=== PATIENT | male | born 1940 | race Caucasian/White ===

== ENCOUNTER 2018-05-24 15:41 | Inpatient (IN) | payer OTHER ==
[~2018-05-24] VITALS: Ht 177.8 cm; Wt 52.2 kg
[~2018-05-24 15:41] MED LIST: ACETAMINOPHEN325 M1 PO; ADVAIR 250-501 EACH IH; ATROVENT30 ML; AVELOX 400 MG400 MG PO; BENICAR40 MG PO; CHILDREN'S ASPI81 M1 PO; LO-DOSE ASPIRIN81 M1 PO; PREDNISONE 10 M10 M1 PO; XOPENEX0.63 MG/3 IH
[2018-05-24 15:44] VITALS: BP 132/101
[2018-05-24 16:33] LABS: HEMATOCRIT 43.1 % (42.0-52.0); HEMOGLOBIN 14.3 gm/dL (14.0-18.0); MCH 36.3 pg (26.0-34.0); MCHC 33.3 g/dL (28.0-37.0); MCV 109.1 fL (80.0-100.0); MPV 8.9 fl. (7.2-11.1); NUCLEATED RBCS 0 /100WBC; PLATELET COUNT* 186 thou/uL (150-400); RBC 3.95 mil/uL (4.50-6.00); RDW-CV 14.2 % (10.5-14.5); WBC 7.3 thou/uL (4.0-11.0)
[2018-05-24 16:40] LABS: CALCIUM 8.6 mg/dL (8.5-10.1); CREATININE 1.5 mg/dL (0.6-1.3); POTASSIUM 3.3 mmol/L (3.5-5.1)
[2018-05-24 16:44] LABS: ALBUMIN 2.6 g/dL (3.4-5.0); TOTAL BILIRUBIN 3.8 mg/dL (<0.1-1.0); TOTAL PROTEIN 7.4 g/dL (6.4-8.2)
[2018-05-24 17:02] LABS: ABSOLUTE LYMPHOCYTES 0.4 thou/uL (0.8-5.3); ABSOLUTE MONOCYTES 0.6 thou/uL (0.0-1.2); ABSOLUTE NEUTROPHILS 6.4 thou/uL (1.6-8.1); PLATELET ESTIMATE ADEQUATE
[2018-05-24 17:03] LABS: MACROCYTES 1+
[2018-05-24 19:29] LABS: MAGNESIUM 1.4 mg/dL (1.8-2.4); PHOSPHORUS* 3.5 mg/dL (2.5-4.9)
[2018-05-24 19:29] LABS: URINE BLOOD 3+ (Negative); URINE CLARITY SL CLOUDY; URINE COLOR DARK YELLOW; URINE GLUCOSE-RANDOM 1+ (Negative); URINE KETONES 1+ (Negative); URINE LEUKOCYTES-REFLEX 1+ (Negative); URINE PROTEIN 2+ (Negative); URINE SPECIFIC GRAVITY 1.025 (1.005-1.030); URINE UROBILINOGEN >= 8.0 E.U./dl (0.2-1.0)
[2018-05-24 19:30] LABS: ICTOTEST (BILI CONFIRMATORY) Positive (Negative); URINE BILIRUBIN 3+ (Negative); URINE NITRITE-REFLEX POSITIVE (Negative)
[2018-05-24 19:36] LABS: BACTERIA-REFLEX >30 Many /HPF (None Seen)
[2018-05-24 19:37] LABS: HYALINE CASTS 4-10 Moderate /LPF (None Seen)
[2018-05-24 19:39] LABS: CRYSTALS None Seen /LPF (None Seen); MUCUS None Seen strn/LPF (None Seen); SQUAMOUS NONE SEEN /LPF (0-3); URINE WBC-REFLEX >25 Many /HPF (0-5); WBC CLUMPS Few (None Seen)
[2018-05-24 19:48] LABS: AMP/METHAMP Negative (Negative); BARBITURATES Negative (Negative); BENZODIAZEPINES Negative (Negative); COCAINE Negative (Negative); METHADONE Negative (Negative); OPIATES Negative (Negative); PCP Negative (Negative); THC Negative (Negative)
[2018-05-24 20:55] VITALS: BP 108/54
[2018-05-24 23:24] LABS: INR 1.1; PROTIME 10.3 Seconds (9.20-11.50)
[2018-05-25] VITALS: BP 86/44
[2018-05-25 04:00] VITALS: BP 97/46
[2018-05-25 04:48] LABS: HEMATOCRIT 32.1 % (42.0-52.0); MCH 36.7 pg (26.0-34.0); MCHC 34.4 g/dL (28.0-37.0); MCV 106.6 fL (80.0-100.0); MPV 8.6 fl. (7.2-11.1); RBC 3.01 mil/uL (4.50-6.00); WBC 4.3 thou/uL (4.0-11.0)
[2018-05-25 04:59] LABS: ALBUMIN 1.8 g/dL (3.4-5.0); CALCIUM 7.3 mg/dL (8.5-10.1); CREATININE 0.9 mg/dL (0.6-1.3); HEMOGLOBIN 11.1 gm/dL (14.0-18.0); PHOSPHORUS* 1.1 mg/dL (2.5-4.9); TOTAL BILIRUBIN 2.9 mg/dL (<0.1-1.0); TOTAL PROTEIN 5.3 g/dL (6.4-8.2)
[2018-05-25 05:25] LABS: POTASSIUM 2.8 mmol/L (3.5-5.1)
[2018-05-25 09:39] VITALS: BP 87/52
[2018-05-25 11:00] VITALS: BP 102/59
--- NOTE | 2018-05-25 11:16 | EKG ---
[place] [address] ELECTROCARDIOGRAM REPORT Name: DINA TOMLINSON Room: [address] ADM IN M.R.#: [id number] Admission: 05/24/18 Attend Phys: Allyson Aquino MD Discharge: Date of : 40 Report #: [id number] THIS REPORT FOR: //name// [facility] Test Date: 2018-05-25 Test Time: 00:06:07 Pat Name: DINA TOMLINSON Department: Room: [address] Gender: M Ham Stringer: RYAN : 1940 Requested By: Della Martel Order Number: [id number] William MD: Benjie Villalta Measurements Intervals [place] Rate: 89 P: 77 [place]: 124 QRS: 43 QRSD: 119 T: 269 QT: 459 QTc: 559 Interpretive Statements Sinus arrhythmia Incomplete right bundle branch block Low voltage, extremity leads Compared to ECG 09/14/2011 10:38:26 Incomplete right bundle-branch block now present Low QRS voltage now present Sinus tachycardia no longer present Electronically Signed On 05-25-2018 11:16:37 CDT by Benjie Villalta [email or web address] <ELECTRONICALLY SIGNED> By: Benjie Villalta MD, [facility] 05/25/18 1116 Benjie Villalta MD, [facility] /EPI
[2018-05-25 16:00] VITALS: BP 104/60
[2018-05-25 19:15] VITALS: BP 120/74
[2018-05-26] VITALS (7 sets, daily range): BP systolic 94–129; BP diastolic 54–82
[2018-05-26 04:31] LABS: HEMOGLOBIN 11.1 gm/dL (14.0-18.0); MCH 36.4 pg (26.0-34.0); MCHC 33.7 g/dL (28.0-37.0); MCV 107.9 fL (80.0-100.0); MPV 8.7 fl. (7.2-11.1); RBC 3.05 mil/uL (4.50-6.00); RDW-CV 14.3 % (10.5-14.5); WBC 5.6 thou/uL (4.0-11.0)
[2018-05-26 04:44] LABS: ALBUMIN 1.7 g/dL (3.4-5.0); CALCIUM 7.3 mg/dL (8.5-10.1); CREATININE 0.8 mg/dL (0.6-1.3); MAGNESIUM 1.9 mg/dL (1.8-2.4); PHOSPHORUS* 0.9 mg/dL (2.5-4.9); POTASSIUM 3.7 mmol/L (3.5-5.1); TOTAL BILIRUBIN 1.2 mg/dL (<0.1-1.0); TOTAL PROTEIN 5.5 g/dL (6.4-8.2)
[2018-05-26 21:19] LABS: BE 0.6 mmol/L (-2 to +3); HCO3 24.1 mmol/L (22.0-26.0); PCO2 35.3 mmHg (35.0-45.0); PO2 88.7 mmHg (75.0-100.0); pH 7.453 (7.340-7.450)
[2018-05-27 04:00] VITALS: BP 110/73
[2018-05-27 05:11] LABS: HEMOGLOBIN 10.5 gm/dL (14.0-18.0); MCH 36.7 pg (26.0-34.0); MCHC 33.9 g/dL (28.0-37.0); MCV 108.2 fL (80.0-100.0); RBC 2.86 mil/uL (4.50-6.00); RDW-CV 14.4 % (10.5-14.5); WBC 4.1 thou/uL (4.0-11.0)
[2018-05-27 05:36] LABS: ALBUMIN 1.6 g/dL (3.4-5.0); CALCIUM 7.5 mg/dL (8.5-10.1); CREATININE 0.7 mg/dL (0.6-1.3); MAGNESIUM 1.6 mg/dL (1.8-2.4); POTASSIUM 3.8 mmol/L (3.5-5.1); TOTAL BILIRUBIN 1.1 mg/dL (<0.1-1.0)
[2018-05-27 08:00] VITALS: BP 104/66
[2018-05-27 11:45] VITALS: BP 112/81
[2018-05-27 15:52] VITALS: BP 113/68
[2018-05-27 20:00] VITALS: BP 113/63
[2018-05-28] VITALS: BP 91/56
[2018-05-28 04:00] VITALS: BP 128/79
[2018-05-28 04:46] LABS: HEMATOCRIT 34.2 % (42.0-52.0); HEMOGLOBIN 11.4 gm/dL (14.0-18.0); MCHC 33.3 g/dL (28.0-37.0); MCV 108.2 fL (80.0-100.0); MPV 9.6 fl. (7.2-11.1); RBC 3.16 mil/uL (4.50-6.00); RDW-CV 14.7 % (10.5-14.5); WBC 5.3 thou/uL (4.0-11.0)
[2018-05-28 05:16] LABS: ALBUMIN 1.8 g/dL (3.4-5.0); CREATININE 0.7 mg/dL (0.6-1.3); MAGNESIUM 1.7 mg/dL (1.8-2.4); POTASSIUM 3.6 mmol/L (3.5-5.1); TOTAL BILIRUBIN 1.3 mg/dL (<0.1-1.0); TOTAL PROTEIN 5.6 g/dL (6.4-8.2)
[2018-05-28 08:00] VITALS: BP 125/75
[2018-05-28 12:02] VITALS: BP 115/65
[2018-05-28 15:29] VITALS: BP 124/77
[2018-05-28 20:00] VITALS: BP 113/61
[2018-05-29] VITALS: BP 97/50
[2018-05-29 04:29] VITALS: BP 114/74
[2018-05-29 08:00] VITALS: BP 120/66
[2018-05-29 11:57] VITALS: BP 122/77
[2018-05-29 16:04] VITALS: BP 129/80
[2018-05-29 20:00] VITALS: BP 121/76
[2018-05-30 00:10] VITALS: BP 113/69
[2018-05-30 04:00] VITALS: BP 114/69
[2018-05-30 08:00] VITALS: BP 122/72
[2018-05-30 11:22] VITALS: BP 115/60
[2018-05-30 15:48] VITALS: BP 123/60
[2018-05-30 20:05] VITALS: BP 119/79
[2018-05-31] VITALS: BP 113/69
[2018-05-31 04:32] VITALS: BP 106/59
[2018-05-31 08:00] VITALS: BP 129/73
[2018-05-31 11:33] VITALS: BP 79/47
[2018-05-31 15:12] VITALS: BP 113/66
[2018-05-31 20:00] VITALS: BP 118/66
[2018-06-01] VITALS: BP 105/54
[2018-06-01 04:43] VITALS: BP 112/63
[2018-06-01 08:30] VITALS: BP 104/51
[2018-06-01 16:13] VITALS: BP 117/67
[2018-06-02 04:42] VITALS: BP 124/82
[2018-06-02 04:50] LABS: ALBUMIN 2.1 g/dL (3.4-5.0); CALCIUM 8.1 mg/dL (8.5-10.1); CREATININE 0.7 mg/dL (0.6-1.3); MAGNESIUM 1.9 mg/dL (1.8-2.4); POTASSIUM 3.9 mmol/L (3.5-5.1); TOTAL BILIRUBIN 0.9 mg/dL (<0.1-1.0); TOTAL PROTEIN 5.7 g/dL (6.4-8.2)
[2018-06-02 08:30] VITALS: BP 91/50
[2018-06-02 15:29] VITALS: BP 91/50
[2018-06-02] MEDS ORDERED: FOLIC ACID 1 MG1 MG PO (15:35)
[2018-06-02] MEDS ORDERED: ALBUTEROL2.5 MG/31 INH (15:36)
[2018-06-02] MEDS ORDERED: PRENATABS FA T1 EACH PO (15:37)
[2018-06-02] MEDS ORDERED: VITAMIN B-1100 M1 PO (15:37)
[2018-06-02] MEDS ORDERED: CELEXA10 MG PO (15:38)
== END 2018-06-02 16:55 | DRG 177 ==
LOC: M.ERS 15:41 → M.2W 18:02 → M.TBA-ER 18:02 → M.2W 19:41
PROVIDERS: Internal Medicine; Personal Emergency Response Attendant; ADMIT Internal Medicine
DX: J69.0 Pneumonitis due to inhalation of food and vomit (principal); G92 Toxic encephalopathy; E43 Unspecified severe protein-calorie malnutrition; N39.0 Urinary tract infection, site not specified; F10.239 Alcohol dependence with withdrawal, unspecified; Z68.1 Body mass index [BMI] 19.9 or less, adult; E11.649 Type 2 diabetes mellitus with hypoglycemia without coma; I25.10 Atherosclerotic heart disease of native coronary artery without angina pectoris; J44.9 Chronic obstructive pulmonary disease, unspecified; F17.210 Nicotine dependence, cigarettes, uncomplicated; K70.30 Alcoholic cirrhosis of liver without ascites; E86.9 Volume depletion, unspecified; E53.8 Deficiency of other specified B group vitamins; F43.10 Post-traumatic stress disorder, unspecified; F51.4 Sleep terrors [night terrors]; K70.10 Alcoholic hepatitis without ascites; F03.90 Unspecified dementia, unspecified severity, without behavioral disturbance, psychotic disturbance, mood disturbance, and anxiety; I25.2 Old myocardial infarction; Z95.5 Presence of coronary angioplasty implant and graft; Z88.0 Allergy status to penicillin; Z88.2 Allergy status to sulfonamides; Z79.4 Long term (current) use of insulin; Z86.73 Personal history of transient ischemic attack (TIA), and cerebral infarction without residual deficits; Z79.899 Other long term (current) drug therapy